=== PATIENT | female | born 1970 | race Caucasian/White ===

== ENCOUNTER 2020-01-12 08:31 | Day surgery (SDC) | payer BC, SELFPAY ==
[2020-01-12 09:00] LABS: Pregnancy On Board Control Negative; Urine Pregnancy Test Negative
[2020-01-12 09:12] LABS: Glucose Point of Care 86 (65-105)
== END 2020-01-12 10:30 | disposition home or self-care (01) ==
LOC: CHSSURGERY 08:33
PROVIDERS: PCP Internal Medicine; Visit Provider Surgery
DX: Z12.11 Encounter for screening for malignant neoplasm of colon (principal); K57.30 Diverticulosis of large intestine without perforation or abscess without bleeding; K64.8 Other hemorrhoids
CPT/HCPCS: 45378; 00812; 81025; J2704; J7120

== ENCOUNTER 2021-04-08 10:23 | Outpatient (CLI) | payer BC, SELFPAY ==
--- NOTE | 2021-04-17 21:50 | WPDHOLTEREM ---
Holter/Event Monitor Holter/Event Monitor Date of procedure: 04/08/21 Procedure Type: event monitor Indications: Palpitations Conclusion: 1. 7 days event monitor between 04/08/21-04/17/21. There are 7 transmissions for analysis. 2. Underlying rhythm is sinus rhythm. HR range 50-120 bpm; average HR 73 bpm. 3. There are occasional premature supraventricular complexes with a burden of 2%. No supraventricular tachycardia. 4. There are intermittent premature ventricular complexes with total burden of 11% and a ventricular couplet. No ventricular tachycardia. 5. No significant pauses greater than 2 seconds. 6. No symptoms available for correlation.
== END 2021-04-08 10:24 | disposition home or self-care (01) ==
LOC: CHSCARD 10:24
PROVIDERS: PCP Internal Medicine; Visit Provider Internal Medicine
DX: R00.2 Palpitations (principal)
CPT/HCPCS: 93270

== ENCOUNTER 2021-04-10 10:12 | Outpatient (CLI) | payer BC, SELFPAY ==
--- NOTE | ~2021-04-10 | MR_ITS ---
EXAMINATION: MR shoulder LT wo con DATE: 04/10/2021 12:02 INDICATION: Chronic left shoulder pain TECHNIQUE: Magnetic resonance imaging (MRI) of the left shoulder was performed without intravenous co ntrast. Sequences included axial PD-weighted FS FSE, coronal oblique PD-weighted FS FSE, coronal obli que T2-weighted FS FSE, sagittal PD-weighted FS FSE, and sagittal T1-weighted SE. COMPARISON: None. FINDINGS: Coracoacromial arch: The acromion undersurface is curved in morphology (type II) with lateral downsloping and tiny lateral subacromial spurs. The coracoacromial ligament is normal. Mild acromioclavicular osteoarthritis with additional tiny inferior directed osteophytes. Rotator cuff: Mild tendinopathy at the distal conjoined portion of the supraspinatus and infraspinatus tendons with out discrete tear. The teres minor and subscapularis tendons are normal. Normal rotator cuff muscle b ulk and signal. Biceps tendon, glenoid labrum and glenohumeral cartilage: Long head of the biceps tendon is normal. Glenoid labrum is normal with normal anterosuperior subling ual foramen. Glenohumeral cartilage is normal. Fluid: Physiologic amount of fluid in the glenohumeral joint and biceps tendon sheath. No loose osteochondra l bodies. Mild increased fluid signal in the subacromial/subdeltoid bursa consistent with mild bursit is. Bones: No fracture or pathologic marrow replacing process. Mild subarticular cystic change at the superior f acet and at the junction of the superior and middle facets of the greater tuberosity. IMPRESSION: 1. Mild tendinopathy without discrete tear at the distal conjoined portion of the supraspinatus and i nfraspinatus tendons. 2. Mild subacromial/subdeltoid bursitis. 3. Mild acromioclavicular osteoarthritis. 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 IMPRESSION: 1. Mild tendinopathy without discrete tear at the distal conjoined portion of t he supraspinatus and infraspinatus tendons. 2. Mild subacromial/subdeltoid bursitis. 3. Mild acromioclavicular osteoarthritis.
== END 2021-04-10 10:13 | disposition home or self-care (01) ==
LOC: CHSIMG 10:13
PROVIDERS: PCP Internal Medicine; Visit Provider Internal Medicine
DX: M25.512 Pain in left shoulder (principal)
CPT/HCPCS: 73221

== ENCOUNTER 2021-08-06 08:55 | Outpatient (CLI) | payer BC, SELFPAY ==
[2021-08-06 10:21] LABS: SARS-CoV-2 RNA PCR Negative (Negative)
== END 2021-08-06 08:56 | disposition home or self-care (01) ==
PROVIDERS: PCP Internal Medicine; Visit Provider Surgery
DX: Z01.818 Encounter for other preprocedural examination (principal); Z20.822 Contact with and (suspected) exposure to COVID-19
CPT/HCPCS: C9803; U0003; U0005

== ENCOUNTER 2021-08-08 01:03 | Day surgery (SDC) | payer BC, SELFPAY ==
[2021-07-25 15:12] VITALS: BMI 23.8
[2021-08-08 08:25] VITALS: BP 145/75; PULSE 93; RESP 16; TEMP 35.9; O2SAT 98; BMI 23.8
[2021-08-08] MEDS: LACTATED RINGERS 1,000 ML 150 ML IV CONT (08:27)
--- NOTE | 2021-08-08 09:17 | PM.IMHP ---
H&P: HPI History of Present Illness Date/Time: 08/08/21 09:17 Chief Complaint: iron deficiency anemia Narrative: this is a 51-year-old woman who presents for EGD and colonoscopy. She has recently been found to have iron deficiency anemia. She does not notice any blood in her stool or any black tarry stools. She has recently been started on iron supplement. She had a colonoscopy 1.5 years ago and this was normal. She denies any acid reflux or ulcer symptoms. Review of Systems Review of Systems: All systems reviewed & are unremarkable except as noted in HPI and below Constitutional: Constitutional: Denies chills, Denies fever(s), Denies headache(s) and Denies weight loss Eyes: Eyes: Denies change in vision ENT: Denies dizziness, Denies headache(s), Denies neck mass and Denies throat swelling Cardiovascular: Cardiovascular: Denies chest pain, Denies lightheadedness and Denies dyspnea Respiratory: Respiratory: Denies cough, Denies dyspnea and Denies wheezing Gastrointestinal: Gastrointestinal: Denies abdominal pain, Denies change in bowel habits, Denies nausea and Denies vomiting Genitourinary: Genitourinary: Denies hematuria and Denies dysuria Musculoskeletal: Musculoskeletal: Reports as per HPI Integumentary/Breasts: Skin/Breast: Reports as per HPI Neurologic: Denies dizziness and Denies headache(s) Allergic/Immunologic: Allergic/Immunologic: Denies throat swelling and Denies wheezing [facility] Past Medical History Medical History (Updated 08/08/21 @ 09:19 by Juvencio Spence DO) Anemia Arthritis H/O bronchitis Family History Family History (System 12/14/19 @ 13:02 by Virgen Hernández) Mother Asthma Social History Social History (System 12/14/19 @ 13:02 by Virgen Hernández) Smoking status: Former smoker Alcohol intake: current Drinks per week: 0 Alcohol use details: occasional Substance use: never Substance use type: does not use Living arrangements: with family Spiritual care concerns: No Meds Home Medications and Allergies Home Medications Medication Instructions Recorded Confirmed Type atenolol 25 mg PO DAILY 07/25/21 07/25/21 History Allergies Allergy/AdvReac Type Severity Reaction Status Date / Time No Known Allergies Allergy Verified 08/08/21 08:24 Vital Signs Vital Signs - 24 hr 08/08/21 08:25 Temperature 35.9 C L Pulse Rate 93 Respiratory Rate 16 Blood Pressure 145/75 H Pulse Oximetry 98 Exam Const: General: no acute distress and alert Orientation/consciousness: patient oriented x3 HENMT: Head: normocephalic and atraumatic Ears: hearing grossly normal bilaterally General nose exam: Normal nares present Mouth: Yes Normal oral and palatal mucosa present Eyes: Periorbital: periorbital findings normal Sclera: sclerae normal EOM: EOMs intact bilaterally Neck: Neck: normal visual inspection, no lymphadenopathy and trachea midline Chest: Chest palpation & inspection: normal inspection of the chest Resp: Effort & Inspection: normal respiratory effort Auscultation: clear to auscultation bilaterally Cardio: Jugular venous distension: no JVD Rate: regular rate Rhythm: regular rhythm Heart sounds: S1 normal heart sound present and S2 normal heart sound present Peripheral pulses: Peripheral pulses 2+ throughout GI: Inspection: normal to inspection GI Palp: Yes Soft to palpation, No Tenderness to palpation present (GI), No Guarding due to palpation present (GI) and No Rebound tenderness present Percussion: Yes normal to percussion Auscultation: normal bowel sounds : General: Yes no CVA tenderness Back/Spine/Pelvis: Back: no CVA tenderness Neuro: General: patient oriented x3, no focal motor deficits and CN's II-XI intact bilaterally Cognition (Neuro): normal cognition Speech: normal speech Motor exam (neuro): 5/5 motor strength present throughout Extrem: General: capillary refill normal and no clubbing, cyanosis or
--- NOTE | 2021-08-08 09:18 | WPDANESEPPF ---
Anes - Initial Pre Proc Eval Procedure: Operation Date: 08/08/21 09:00 Proposed Procedures p Esophagogastroduodenoscopy & Screening Colonoscopy - Juvencio Spence DO Date/Time: 08/08/21 09:18 Surgeon: Juvencio Spence DO Pre Op Diagnosis: MARY Patient Data Age: 51 Gender: F Height: 1.75 m Weight: 73 kg Last Vital Signs Temp 96.7 F L 08/08/21 08:25 Pulse 93 08/08/21 08:25 Resp 16 08/08/21 08:25 BP 145/75 H 08/08/21 08:25 Pulse Ox 98 08/08/21 08:25 Allergies Allergy/AdvReac Type Severity Reaction Status Date / Time No Known Allergies Allergy Verified 08/08/21 08:24 Home Medications Medication Instructions Recorded Confirmed Type atenolol 25 mg PO DAILY 07/25/21 07/25/21 History Patient hx anesthesia problems: none Family hx anesthesia problems: none Results Review: All pre-operative results and documents have been reviewed as part of the pre-operative evaluation. [facility] Past Medical History Medical History (Updated 08/08/21 @ 09:19 by Juvencio Spence DO) Anemia Arthritis H/O bronchitis Family History Family History (System 12/14/19 @ 13:02 by Virgen Hernández) Mother Asthma Social History Social History (System 12/14/19 @ 13:02 by Virgen Hernández) Smoking status: Former smoker Alcohol intake: current Drinks per week: 0 Alcohol use details: occasional Substance use: never Substance use type: does not use Living arrangements: with family Spiritual care concerns: No Anes - Eval Final PreProcedure Day of Procedure 08/08/21 09:18 Patient weight: normal Heart: regular rate and rhythm Lungs: clear to auscultation Airway: Mallampati scale class II Neurological: alert and oriented Last oral intake: >/= 8 hours ASA classification: II Emergent: no Anesthetic plan: proceed Anesthesia type and monitoring: general GIVS and standard monitoring Results Review: All pre-operative results and documents have been reviewed as part of the pre-operative evaluation. Informed Consent: The patient's anesthetic plan and its attendant risks and benefits were discussed with the patient/family/POA. Questions were solicited and answers provided to the satisfaction of the patient/family/POA.
--- NOTE | 2021-08-08 10:11 | SUR.OPER ---
[facility] [phone] [place] [phone]
[2021-08-08 10:15] VITALS: BP 99/49; PULSE 60; RESP 12; O2SAT 100
[2021-08-08 10:25] VITALS: BP 92/60; PULSE 65; RESP 20; O2SAT 100
[2021-08-08 10:35] VITALS: BP 107/65; PULSE 67; RESP 16; O2SAT 100
== END 2021-08-08 10:55 | disposition home or self-care (01) ==
PROVIDERS: PCP Internal Medicine; Visit Provider Surgery
PROC: 0DJ08ZZ Inspection of Upper Intestinal Tract, Via Natural or Artificial Opening Endoscopic (ICD-10-PCS; CPT 43235; principal; 2021-08-08 09:00)
DX: D50.9 Iron deficiency anemia, unspecified (principal); K29.00 Acute gastritis without bleeding; D17.5 Benign lipomatous neoplasm of intra-abdominal organs; K64.8 Other hemorrhoids; M19.90 Unspecified osteoarthritis, unspecified site; Z87.891 Personal history of nicotine dependence
CPT/HCPCS: 43251; 43239; 45378; 87081; 88305; J2001; J2704; J7120

== ENCOUNTER 2021-08-12 10:23 | Outpatient (CLI) | payer BC, SELFPAY ==
[2021-08-12 10:35] LABS: Add Urine Microscopic? NO; Appearance Urine Clear (Clear); Basophils Absolute Auto 0.06 K/mm3 (0.00-0.10); Basophils Percent Auto 0.9 % (0.0-1.0); Bilirubin Urine Negative (Negative); Blood Urine Negative (Negative); Color Urine Light Yellow (Yellow); Eosinophils Absolute Auto 0.15 K/mm3 (0.02-0.50); Eosinophils Percent Auto 2.2 % (1.0-6.0); Glucose Urine UA Negative (Negative); Hematocrit 39.7 % (35.0-49.0); Hemoglobin 12.9 g/dL (12.0-15.0); Immature Granulocyte Absolute 0.02 K/mm3 (0.00-0.00); Immature Granulocyte Percent A 0.3 % (0.0-0.0); Ketones Urine Negative (Negative); Leukocyte Esterase Ur Negative LEU/UL (Negative); Lymphocytes Absolute Auto 1.08 K/mm3 (1.10-4.50); Mean Corpuscular HGB Conc 32.5 g/dL (32.0-36.0); Mean Corpuscular Hemoglobin 30.1 pg (27.0-31.0); Mean Corpuscular Volume 92.5 fL (78.0-102.0); Mean Platelet Volume 12.3 fl (9.2-11.8); Monocytes Percent Auto 11.8 % (2.0-11.0); Neutrophils Absolute Auto 4.7 K/mm3 (1.7-7.2); Neutrophils Percent Auto 68.8 % (50.0-70.0); Nitrate Urine Negative (Negative); Platelet Count Result 173 K/mm3 (150-420); Protein Urine Negative (Negative); Red Blood Count 4.29 M/mm3 (4.20-5.40); Red Cell Distribution Width 15.9 % (11.6-14.4); Specific Grav Ur <= 1.005 (1.010-1.020); Urobilinogen Urine 0.2 mg/dL (0.2-1.0); White Blood Count 6.8 K/mm3 (4.8-10.8)
[2021-08-12 11:53] LABS: Alanine Aminotransferase 24 U/L (14-59); Albumin Level 4.1 g/dL (3.4-5.0); Alkaline Phosphatase 58 U/L (46-116); Anion Gap 8 mmol/L (8-16); Aspartate Amino Transferase 13 U/L (15-37); Bilirubin,Total 0.4 mg/dL (0.00-1.00); Blood Urea Nitrogen 19 mg/dL (7-18); Calcium 8.9 mg/dL (8.5-10.1); Carbon Dioxide 29 mmol/L (21-32); Chloride 105 mmol/L (98-108); Estimated Glomerular Filt Rate 55; Ferritin 66 ng/mL (8-252); Glucose 83 mg/dL (70-99); Iron 85 ug/dL (50-170); Osmolality Calculated 295 mOsm/kg (285-295); Percent Iron Saturation 30 % (12-57); Potassium 4.8 mmol/L (3.5-5.1); Sodium 142 mmol/L (136-145); Total Protein 6.5 g/dL (6.4-8.2); Vitamin B12 572 pg/mL (193-986)
== END 2021-08-12 10:24 | disposition home or self-care (01) ==
LOC: CHSLAB 10:25
PROVIDERS: PCP Internal Medicine; Visit Provider Internal Medicine
DX: R10.11 Right upper quadrant pain (principal); E53.8 Deficiency of other specified B group vitamins; D64.9 Anemia, unspecified
CPT/HCPCS: 36415; 80053; 81003; 82607; 82728; 83540; 83550; 85025

== ENCOUNTER 2021-08-14 10:45 | Outpatient (CLI) | payer BC, SELFPAY ==
--- NOTE | ~2021-08-14 | CT_ITS ---
EXAMINATION: CT abdomen pelvis w con DATE: 08/14/2021 11:16 INDICATION: Generalized upper abdominal pain radiating to back. Constipation. TECHNIQUE: Computed tomography (CT) of the abdomen and pelvis was performed with 100 cc Omnipaque 350 intravenous contrast. Automated exposure control and iterative reconstruction technique were employe d. Exam dose: 404.25 mGy-cm total exam DLP. COMPARISON: None. FINDINGS: The lung bases are clear. Normal heart size. No pericardial or pleural effusion. There are scattered hepatic cysts of left and right hepatic lobes, measuring up to 2.2 cm approximate maximal dimension. No suspicious hepatic lesion is evident. The gallbladder is unremarkable. No bile duct or pancreatic duct dilatation. No pancreatic mass lesio n or calcification is detected. Scattered calcified splenic granulomas. No splenomegaly. Normal morphology of the adrenal glands. 5 mm probable cyst upper pole of right kidney. No renal mass lesion or urinary tract calculus or hydr oureteronephrosis of either kidney is noted otherwise. Approximately 5.3 cm uterine fundic fibroid. Bilateral tubal insert devices. Mild diffuse thickening of the urinary bladder wall. Normal caliber of the abdominal aorta. No intraperitoneal or retroperitoneal or pelvic mass lesion or adenopathy or ascites. Normal appendix. There are occasional colonic diverticula; no CT evidence of diverticulitis. No bowel obstruction, pne umatosis or intraperitoneal free air. No suspicious osteolytic or osteoblastic lesions. IMPRESSION: Multiple hepatic cysts Normal appendix Mild colonic diverticulosis; no CT evidence of diverticulitis 5.3 cm uterine fibroid Reviewed, dictated and finalized at Location [facility]. Reviewed, dictated and finalized at location B.
== END 2021-08-14 10:46 | disposition home or self-care (01) ==
LOC: CHSIMG 10:45
PROVIDERS: PCP Internal Medicine; Visit Provider Internal Medicine
DX: R10.9 Unspecified abdominal pain (principal)
CPT/HCPCS: 74177; Q9967

== ENCOUNTER 2021-08-22 13:29 | Outpatient (CLI) | payer BC, SELFPAY ==
[2021-08-22 14:19] LABS: Anion Gap 8 mmol/L (8-16); Blood Urea Nitrogen 15 mg/dL (7-18); Carbon Dioxide 29 mmol/L (21-32); Chloride 104 mmol/L (98-108); Estimated Glomerular Filt Rate 54; Glucose 97 mg/dL (70-99); Osmolality Calculated 292 mOsm/kg (285-295); Potassium 4.4 mmol/L (3.5-5.1); Sodium 141 mmol/L (136-145)
== END 2021-08-22 13:30 | disposition home or self-care (01) ==
LOC: CHSLAB 13:30
PROVIDERS: PCP Internal Medicine; Visit Provider Internal Medicine
DX: R79.89 Other specified abnormal findings of blood chemistry (principal)
CPT/HCPCS: 36415; 80048

== ENCOUNTER 2021-10-02 11:58 | Outpatient (CLI) | payer BC, SELFPAY ==
[2021-10-02 14:14] LABS: Influenza A QL RT-PCR Negative (Negative); Influenza B QL RT-PCR Negative (Negative); SARS-CoV-2 RNA PCR Negative (Negative)
== END 2021-10-02 11:59 | disposition home or self-care (01) ==
LOC: CHSLAB 12:01
PROVIDERS: PCP Internal Medicine; Visit Provider Internal Medicine
DX: J06.9 Acute upper respiratory infection, unspecified (principal)
CPT/HCPCS: 87081; 87502; 87880; C9803; U0003; U0005

== ENCOUNTER 2021-12-06 16:24 | Outpatient (CLI) | payer BC, SELFPAY ==
[2021-12-06 17:20] LABS: SARS-CoV-2 Ag Negative (Negative)
[2021-12-06 17:31] LABS: Influenza Control Valid (Valid)
[2021-12-07 20:23] LABS: SARS-CoV-2 RNA PCR Negative
== END 2021-12-06 16:25 | disposition home or self-care (01) ==
LOC: CHSLAB 16:27
PROVIDERS: PCP Internal Medicine; Visit Provider Internal Medicine
DX: J06.9 Acute upper respiratory infection, unspecified (principal); Z20.822 Contact with and (suspected) exposure to COVID-19
CPT/HCPCS: 87081; 87426; 87804; 87880; C9803; U0003; U0005

== ENCOUNTER 2022-04-02 18:28 | Outpatient (CLI) | payer BC, SELFPAY ==
--- NOTE | ~2022-04-02 | XR_ITS ---
EXAMINATION: XR chest 2V Exam Date/Time: 04/02/2022 18:40 CDT HISTORY: Post COVID X 2 wks ago , cough Comparison: 06/18/2018.. RESULT: Lines, tubes, and devices: None. Lungs and pleura: Clear. Cardiomediastinal silhouette: Stable cardiomediastinal silhouette. Other: No acute osseous or upper abdominal finding. IMPRESSION: No acute cardiopulmonary process. Reviewed, dictated and finalized at location K.
== END 2022-04-02 18:29 | disposition home or self-care (01) ==
LOC: CHSIMG 18:32
PROVIDERS: PCP Internal Medicine; Visit Provider Internal Medicine
DX: R05.9 Cough, unspecified (principal); U09.9 Post COVID-19 condition, unspecified
CPT/HCPCS: 71046

== ENCOUNTER 2024-01-01 11:23 | Outpatient (CLI) | payer BC, SELFPAY ==
--- NOTE | ~2024-01-01 | XR_ITS ---
XR chest 2V DATE: 01/01/2024 11:49 INDICATION: Cough, wheezing TECHNIQUE: PA and lateral views COMPARISON: 04/02/2022 PA and lateral chest FINDINGS: Moderate bilateral hyperinflation. No pulmonary infiltrate or consolidation, pleural effusi on or pulmonary vascular congestion or pneumothorax is detected. Heart size is normal. No hilar or me diastinal enlargement. Mild levoscoliosis of the upper thoracic spine. Osteopenia. IMPRESSION: Moderate bilateral hyperinflation. No active cardiopulmonary disease Reviewed, dictated and finalized at location B. 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 No active cardiopulmonary diseas e
[2024-01-01 11:42] LABS: Hematocrit 39.4 % (35.0-49.0); Hemoglobin 12.9 g/dL (12.0-15.0); Immature Platelet Fraction Pct 3.6 % (1.0-7.0); Mean Corpuscular HGB Conc 32.7 g/dL (32.0-36.0); Mean Corpuscular Hemoglobin 30.2 pg (27.0-31.0); Mean Corpuscular Volume 92.3 fL (78.0-102.0); Mean Platelet Volume 10.5 fl (9.2-11.8); Platelet Count Result 142 K/mm3 (150-420); Red Blood Count 4.27 M/mm3 (4.20-5.40); Red Cell Distribution Width 13.9 % (11.6-14.4); White Blood Count 4.2 K/mm3 (4.8-10.8)
[2024-01-01 11:57] LABS: Alanine Aminotransferase 19 U/L (14-59); Albumin Level 3.5 g/dL (3.4-5.0); Alkaline Phosphatase 63 U/L (46-116); Anion Gap 9 mmol/L (8-16); Aspartate Amino Transferase 19 U/L (15-37); Bilirubin,Total 0.3 mg/dL (0.00-1.00); Blood Urea Nitrogen 11 mg/dL (7-18); Calcium 7.9 mg/dL (8.5-10.1); Carbon Dioxide 28 mmol/L (21-32); Chloride 100 mmol/L (98-108); Estimated Glomerular Filt Rate 45; Glucose 101 mg/dL (70-99); Osmolality Calculated 283 mOsm/kg (285-295); Potassium 3.8 mmol/L (3.5-5.1); Sodium 137 mmol/L (136-145); Total Protein 6.4 g/dL (6.4-8.2)
[2024-01-01 12:42] LABS: Band Neutrophils Percent 3 % (0-6); Basophils Percent Manual 0 % (0-1); Eosinophils Percent Manual 0 % (1-6); Lymphocytes Absolute Manual 0.88 K/mm3 (1.1-4.5); Lymphocytes Percent Manual 21 % (18-44); Monocytes Absolute Manual 0.58 K/mm3 (0.1-0.90); Monocytes Percent Manual 14 % (3-9); Neutrophils Absolute Manual 2.73 K/mm3 (1.7-7.2); Neutrophils Percent Manual 62 % (46-73); Platelet Estimate Adequate (Adequate); Total Cells Counted 100
== END 2024-01-01 11:24 | disposition home or self-care (01) ==
LOC: CHSLAB 11:27
PROVIDERS: PCP Internal Medicine; Visit Provider Internal Medicine
DX: R05.9 Cough, unspecified (principal); R91.8 Other nonspecific abnormal finding of lung field
CPT/HCPCS: 36415; 71046; 80053; 85025; 85055

== ENCOUNTER 2024-01-14 14:06 | Outpatient (CLI) | payer BC, SELFPAY ==
--- NOTE | ~2024-01-14 | XR_ITS ---
EXAMINATION: XR chest 2V DATE: 01/14/2024 14:29 INDICATION: Cough. Congestion. TECHNIQUE: Frontal and lateral views of the chest were obtained. COMPARISON: Chest 2 views 01/01/2024, CT abdomen and pelvis 08/14/2021 FINDINGS: A calcified right lung nodule is consistent with old granulomatous disease. No pleural effu tye or pneumothorax. The heart size is normal. IMPRESSION: 1. No acute cardiopulmonary disease. 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 [employer] P[employer] TOUR GUIDE
[2024-01-14 14:20] LABS: Basophils Absolute Auto 0.03 K/mm3 (0.00-0.10); Basophils Percent Auto 0.6 % (0.0-1.0); Eosinophils Absolute Auto 0.13 K/mm3 (0.02-0.50); Eosinophils Percent Auto 2.4 % (1.0-6.0); Hemoglobin 12.3 g/dL (12.0-15.0); Immature Granulocyte Absolute 0.01 K/mm3 (0.00-0.00); Immature Granulocyte Percent A 0.2 % (0.0-0.0); Lymphocytes Absolute Auto 1.58 K/mm3 (1.10-4.50); Lymphocytes Percent Auto 29.1 % (18.0-42.0); Mean Corpuscular HGB Conc 32.4 g/dL (32.0-36.0); Mean Corpuscular Hemoglobin 29.9 pg (27.0-31.0); Mean Corpuscular Volume 92.2 fL (78.0-102.0); Mean Platelet Volume 9.9 fl (9.2-11.8); Monocytes Absolute Auto 0.82 K/mm3 (0.10-0.90); Monocytes Percent Auto 15.1 % (2.0-11.0); Neutrophils Absolute Auto 2.9 K/mm3 (1.7-7.2); Neutrophils Percent Auto 52.6 % (50.0-70.0); Platelet Count Result 232 K/mm3 (150-420); Red Blood Count 4.12 M/mm3 (4.20-5.40); Red Cell Distribution Width 13.4 % (11.6-14.4); White Blood Count 5.4 K/mm3 (4.8-10.8)
== END 2024-01-14 14:07 | disposition home or self-care (01) ==
LOC: CHSLAB 14:08
PROVIDERS: PCP Internal Medicine; Visit Provider Internal Medicine
DX: R05.9 Cough, unspecified (principal)
CPT/HCPCS: 36415; 71046; 85025

== ENCOUNTER 2024-01-20 13:31 | Outpatient (CLI) | payer OTHER, SELFPAY ==
--- NOTE | 2024-01-20 14:30 | NEURO_ITS ---
Impression: # Complains of bilateral upper extremity discomfort and hand pain. # Early evolving Carpal Tunnel Syndrome. # No ulnar neuropathy. # Normal needle/EMG exam. Nerve Conduction Studies Anti Sensory Summary Table Stim Site NR Peak (ms) P-T Amp (?V) Site1 Site2 Delta-P (ms) Dist (cm) Edgardo (m/s) Left Median Anti Sensory (2-3nd Digit) Wrist 3.3 56.4 Wrist 2-3nd Digit 3.3 14.0 42 Wrist 3.3 74.3 Wrist 2-3nd Digit 3.3 14.0 42 Right Median Anti Sensory (2-3nd Digit) Wrist 3.2 42.7 Wrist 2-3nd Digit 3.2 14.0 44 Wrist 3.2 59.8 Wrist 2-3nd Digit 3.2 14.0 44 Left Radial Anti Sensory (Base 1st Digit) Wrist 1.9 43.2 Wrist Base 1st Digit 1.9 0.0 Right Radial Anti Sensory (Base 1st Digit) Wrist 2.4 22.3 Wrist Base 1st Digit 2.4 0.0 Left Ulnar Anti Sensory (5th Digit) Wrist 2.5 85.9 Wrist 5th Digit 2.5 14.0 56 Right Ulnar Anti Sensory (5th Digit) Wrist 2.4 43.3 Wrist 5th Digit 2.4 14.0 58 Motor Summary Table Stim Site NR Onset (ms) O-P Amp (mV) Site1 Site2 Delta-0 (ms) Dist (cm) Edgardo (m/s) Left Median Motor (Abd Poll Brev) Wrist 3.0 6.0 Elbow Wrist 4.8 29.0 60 Elbow 7.8 6.5 Right Median Motor (Abd Poll Brev) Wrist 3.8 3.0 Elbow Wrist 4.3 26.0 60 Elbow 8.1 7.6 Left Ulnar Motor (Abd Dig Minimi) Wrist 2.3 6.5 A Elbow Wrist 5.1 30.0 59 A Elbow 7.4 6.0 Right Ulnar Motor (Abd Dig Minimi) Wrist 2.4 7.3 A Elbow Wrist 4.9 29.0 59 A Elbow 7.3 5.4 F Wave Studies NR F-Lat (ms) L-R F-Lat (ms) Left Median (Mrkrs) (Abd Poll Brev) 28.40 0.35 Right Median (Mrkrs) (Abd Poll Brev) 28.05 0.35 Left Ulnar (Mrkrs) (Abd Dig Min) 26.92 0.02 Right Ulnar (Mrkrs) (Abd Dig Min) 26.91 0.02 EMG Side Muscle Nerve Root Ins Act Fibs Amp Dur Recrt Comment Right 1stDorInt Ulnar C8-T1 Nml Nml Nml Nml Nml Right Ext Indicis Radial (Post Int) C7-8 Nml Nml Nml Nml Nml Right Ext Digitorum Radial (Post Int) C7-8 Nml Nml Nml Nml Nml Right BrachioRad Radial C5-6 Nml Nml Nml Nml Nml Right PronatorTeres Median C6-7 Nml Nml Nml Nml Nml Right Abd Poll Brev Median C8-T1 Nml Nml Nml Nml Nml Right ABD Dig Min Ulnar C8-T1 Nml Nml Nml Nml Nml Left 1stDorInt Ulnar C8-T1 Nml Nml Nml Nml Nml Left Ext Indicis Radial (Post Int) C7-8 Nml Nml Nml Nml Nml Left Ext Digitorum Radial (Post Int) C7-8 Nml Nml Nml Nml Nml Left BrachioRad Radial C5-6 Nml Nml Nml Nml Nml Left PronatorTeres Median C6-7 Nml Nml Nml Nml Nml Left Abd Poll Brev Median C8-T1 Nml Nml Nml Nml Nml Left ABD Dig Min Ulnar C8-T1 Nml Nml Nml Nml Nml Right FlexCarpiUln Ulnar C8,T1 Nml Nml Nml Nml Nml Right Abd Poll Long Radial (Post Int) C7-8 Nml Nml Nml Nml Nml Left Abd Poll Long Radial (Post Int) C7-8 Nml Nml Nml Nml Nml Left FlexCarpiUln Ulnar C8,T1 Nml Nml Nml Nml Nml MTDD
== END 2024-01-20 13:32 | disposition home or self-care (01) ==
PROVIDERS: PCP Internal Medicine; Visit Provider Internal Medicine
DX: G56.03 Carpal tunnel syndrome, bilateral upper limbs (principal)
CPT/HCPCS: 95886; 95911

== ENCOUNTER 2024-11-17 13:54 | Outpatient (CLI) | payer BC, SELFPAY ==
--- NOTE | ~2024-11-17 | XR_ITS ---
CHEST RADIOGRAPH, PA AND LATERAL CLINICAL HISTORY: cough/wheezing/crepts/pneumonia . COMPARISON: 01/14/2024 TECHNIQUE: PA and lateral views of the chest. FINDINGS The cardiomediastinal silhouette is unremarkable. The lungs are clear. Visualized osseous structures and soft tissues are unremarkable. IMPRESSION: No focal infiltrate or effusion. 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
[2024-11-17 14:13] LABS: Basophils Absolute Auto 0.05 K/mm3 (0.00-0.10); Basophils Percent Auto 0.5 % (0.0-1.0); Eosinophils Percent Auto 1.9 % (1.0-6.0); Hematocrit 40.3 % (35.0-49.0); Immature Granulocyte Absolute 0.06 K/mm3 (0.00-0.00); Immature Granulocyte Percent A 0.6 % (0.0-0.0); Lymphocytes Percent Auto 22.3 % (18.0-42.0); Mean Corpuscular HGB Conc 32.3 g/dL (32-36); Mean Corpuscular Hemoglobin 29.4 pg (27.0-31.0); Mean Corpuscular Volume 91.2 fL (78.0-102.0); Mean Platelet Volume 9.9 fl (9.2-11.8); Monocytes Percent Auto 7.8 % (2.0-11.0); Neutrophils Absolute Auto 6.89 K/mm3 (1.70-7.20); Neutrophils Percent Auto 66.9 % (50.0-70.0); Platelet Count Result 246 K/mm3 (150-420); Red Blood Count 4.42 M/mm3 (4.20-5.40); Red Cell Distribution Width 13.6 % (11.6-14.4); White Blood Count 10.3 K/mm3 (4.8-10.8)
== END 2024-11-17 13:55 | disposition home or self-care (01) ==
LOC: CHSLAB 13:57
PROVIDERS: PCP Internal Medicine; Visit Provider Internal Medicine
DX: R05.9 Cough, unspecified (principal); R06.2 Wheezing
CPT/HCPCS: 36415; 71046; 85025

== ENCOUNTER 2024-11-22 12:55 | Outpatient (RCR) | payer OTHER, SELFPAY ==
--- NOTE | 2024-11-23 16:21 | BUOTOPEVAL ---
Assessment and note entered by Erika Flores OT Evaluation Information Assessment Status Evaluation Diagnosis Pain of bilateral hands ICD-10 Condition Codes (OT) Pain in right hand M79.641,Pain in left hand M79. 642 Onset 09/2022 Subjective Information Main concerns are numbness in B hands, swelling of forearm, aches/pain in hands and forearms. Reported Pain Level Pain Score 4,3: Self Report Assessment OT Clinical Summary The patient is a 54 year old female who was referred to outpatient OT due to B hand pain, B carpal tunnel release. The patient previously was having pain, following surgery, the pain has improved but she continued to have discomfort and numbness/tingling in B hands. 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 The patient hopes to return to work soon and want to address pain and mobility of B hands and wrists. The patient requires skilled OT to address scar management, pain, AROM, vice president supply chain/pinch strength and HEP education. Plan of Care Interventions Therapeutic Exercise,Manual Therapy,Neuro Re- education,Therapeutic Activities,Hot Pack/Cold Pack,Self-Care/Home Management,Prosthetic Training ,Ultrasound OT Services Indicated Yes Treatment Frequency and 2x/week for 12 visits. Duration These treatments will address the objective and functional deficits as defined above. The patient will be advanced safely and appropriately in order for the patient to progress towards his/her prior level of function. Additional exercises will be introduced and as well as a comprehensive home exercise program upon discharge, if needed, ?to ensure carryover of functional gains achieved in the clinic. This treatment plan has been reviewed and agreement upon by the patient.
--- NOTE | 2024-11-23 16:21 | OPREHPOC ---
Outpatient Therapy Plan of Care This is a Multidisciplinary Plan of Care that may contain components documented by all disciplines (PT, OT, and ST.) OT Problem 1 OT Problem #1 Knowledge Deficit OT Goal 1 Goal / Goal Update The patient will demonstrate 100% knowledge and return demonstration for UE HEP in order to improve hand strength and decrease pain for return to work. Target Visit 12 OT Problem 2 OT Problem #2 Pain OT Goal 1 Goal / Goal Update The patient will demonstrate decreased pain in B hands and forearms reported as <1/10 pain at its worst in order to perform ADLs without discomfort. Target Visit 12 OT Goal 2 Goal / Goal Update The patient will demonstrate WNL AROM of B wrist flexion and extension in order to perform grooming tasks without difficulty to maintain independence . SOC L wrist flexion: 28 degrees L wrist extension: 60 degrees R wrist flexion: 41 degrees R wrist extension: 65 degrees Target Visit 12 OT Problem 3 OT Problem #3 Impaired Strength OT Goal 1 Goal / Goal Update The patient will demonstrate increased rn new grad and pinch strength by increasing B rn new grad by >10 lbs and lateral pinch by >8 lbs in order to open jars for meal prep. Target Visit 12 OT Goal 2 Goal / Goal Update The patient will demonstrate minimal to no scar buildup at B hands at incision site to avoid further limited ROM and pain. Target Visit 12
--- NOTE | 2024-12-16 12:33 | OTOPPROG ---
Assessment and note entered by Erika Flores OT Evaluation Information Assessment Status Progress Assessment OT Clinical Summary The patient demonstrates significant improvement in wrist AROM, calculation clerk/pinch strength, and scar management since SOC resulting in increased strength for daily tasks and decreased limitations with wrist mobility. The patient demonstrates minimal progress in overall pain with sharp/ shooting pain in L hand. The patient demonstrates continued need for skilled OT to address L scar buildup, B wrist AROM, B hand strength and pain management needed to return to WNL function of B hands for daily tasks and work. The patient demonstrates good progress toward goals with reasonable expectation for improvement. The patient requires 4 more visits to finish 12 visits on order with date extended to continue to address deficits. The patient is aware and is to continue HEP and skilled OT. Plan of Care Interventions Therapeutic Exercise,Manual Therapy,Neuro Re- education,Therapeutic Activities,Hot Pack/Cold Pack,Electrical Stimulation,Sensory Integrative Techniques,Self-Care/Home Management,Prosthetic Training OT Services Indicated Yes Treatment Frequency and 2x/week for 4 visits. Duration These treatments will address the objective and functional deficits as defined above. The patient will be advanced safely and appropriately in order for the patient to progress towards his/her prior level of function. Additional exercises will be introduced and as well as a comprehensive home exercise program upon discharge, if needed, ?to ensure carryover of functional gains achieved in the clinic. This treatment plan has been reviewed and agreement upon by the patient.
--- NOTE | 2024-12-16 12:33 | OPREHPOC ---
Outpatient Therapy Plan of Care This is a Multidisciplinary Plan of Care that may contain components documented by all disciplines (PT, OT, and ST.) OT Problem 1 OT Problem #1 Knowledge Deficit OT Goal 1 Goal / Goal Update The patient will demonstrate 100% knowledge and return demonstration for UE HEP in order to improve hand strength and decrease pain for return to work. Target Visit 12 Progress Partially Met OT Problem 2 OT Problem #2 Pain OT Goal 1 Goal / Goal Update The patient will demonstrate decreased pain in B hands and forearms reported as <1/10 pain at its worst in order to perform ADLs without discomfort. 08/25 CONTINUE 12/16/2024 Target Visit 12 OT Goal 2 Goal / Goal Update The patient will demonstrate WNL AROM of B wrist flexion and extension in order to perform grooming tasks without difficulty to maintain independence . 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 GOAL PROGRESSING; CONTINUE SOC: Health Data Analyst: 30 lbs L hand Health Data Analyst: 41 lbs R hand Lateral pinch: 2 lbs L hand Lateral pinch: 5 lbs R hand L UE PN Health Data Analyst: 33 PN Pinch: 5 R UE PN Health Data Analyst: 42 PN Pinch: 7 Norms: R hand: 57 lbs call center director 15 pinch norm 47 L norm Target Visit 12 OT Goal 2 Goal / Goal Update The patient will demonstrate minimal to no scar buildup at L hands at incision site to avoid further limited ROM and pain. GOAL PROGRESSING; CONTINUE L UE; R WNL Target Visit 12 Progress Partially Met
--- NOTE | 2024-12-28 10:50 | OTOPPROG ---
Assessment and note entered by Erika Flores, OT Evaluation Information Assessment Status Progress Diagnosis Pain of bilateral hands ICD-10 Condition Codes (OT) Pain in right hand M79.641,Pain in left hand M79. 642 Assessment OT Clinical Summary The patient demonstrates significant progress in B UE wrist AROM and mobility, continuous improvement specialist/pinch strength, pain levels, and scar management. These improvements have improved the patient's ability to open doors and containers as well as engage in ADLs with independence. The patient demonstrates no difficulty with fine motor coordination or dropping daily items at this time. The patient demonstrates minimal deficits with R hand and minimal to moderate with L hand, the patient scored 13.6% on QuickDASH at progress note for R UE and 40.9% for L UE. These scores demonstrate functional improvement with B UE due to scores at start of care as 52.3% for R hand and 65.9% for L hand. The patient is still having discomfort mostly in L hand and demonstrates minimally below norms for continuous improvement specialist and pinch strength. She demonstrates good progress thus far during OT, to return to MD office 12/30/24 for re-assessment. Plan of Care Interventions Therapeutic Exercise,Manual Therapy,Neuro Re- education,Therapeutic Activities,Hot Pack/Cold Pack,Sensory Integrative Techniques,Self-Care/Home Management,Prosthetic Training,Ultrasound OT Services Indicated Yes Treatment Frequency and 1-2x/week for 10 visits. Duration These treatments will address the objective and functional deficits as defined above. The patient will be advanced safely and appropriately in order for the patient to progress towards his/her prior level of function. Additional exercises will be introduced and as well as a comprehensive home exercise program upon discharge, if needed, ?to ensure carryover of functional gains achieved in the clinic. This treatment plan has been reviewed and agreement upon by the patient.
--- NOTE | 2024-12-28 10:50 | OPREHPOC ---
Outpatient Therapy Plan of Care This is a Multidisciplinary Plan of Care that may contain components documented by all disciplines (PT, OT, and ST.) OT Problem 1 OT Problem #1 Knowledge Deficit OT Goal 1 Goal / Goal Update The patient will demonstrate 100% knowledge and return demonstration for UE HEP in order to improve hand strength and decrease pain for return to work. GOAL MET 12/28/2024 Target Visit 12 Progress Met OT Problem 2 OT Problem #2 Pain OT Goal 1 Goal / Goal Update The patient will demonstrate decreased pain in B hands and forearms reported as <1/10 pain at its worst in order to perform ADLs without discomfort. -01/23 CONTINUE 12/16/2024 CONTINUE 12/28/2024 Target Visit 12 Progress Partially Met OT Goal 2 Goal / Goal Update The patient will demonstrate WNL AROM of B wrist flexion and extension in order to perform grooming tasks without difficulty to maintain independence . GOAL MET; DISCONTINUE 12/28/2024 SOC L wrist flexion: 28 degrees L wrist extension: 60 degrees R wrist flexion: 41 degrees R wrist extension: 65 degrees PN 12/28/2024 L wrist flexion: 61 degrees L wrist extension: 69 degrees R wrist flexion: 68 degrees R wrist extension: 70 degrees Target Visit 12 Progress Met OT Problem 3 OT Problem #3 Impaired Strength OT Goal 1 Goal / Goal Update The patient will demonstrate increased meter repairer and pinch strength by increasing R meter repairer strength to 50 lbs and L meter repairer to 45 lbs; lateral pinch for B hands to 10 lbs of force needed to open jars for meal prep. GOAL PROGRESSING; CONTINUE 12/28/2024 SOC: Diving Instructor: 30 lbs L hand Diving Instructor: 41 lbs R hand Lateral pinch: 2 lbs L hand Lateral pinch: 5 lbs R hand PROGRESS; 12/28/2024 Diving Instructor: 46 lb R hand Diving Instructor: 40 lbs L hand Lateral pinch: 7 lbs R hand Lateral pinch: 7 lbs L hand Target Visit 12 Progress Partially Met OT Goal 2 Goal / Goal Update The patient will demonstrate minimal to no scar buildup at L hands at incision site to avoid further limited ROM and pain. GOAL MET; DISCONTINUE 12/28/2024 Target Visit 12 Progress Met
--- NOTE | 2025-01-31 14:40 | OTOPPROG ---
Assessment and note entered by Erika Flores, OT Evaluation Information Assessment Status Progress Diagnosis Pain of B hands Other ICD-10 Condition Codes ( Post op B carpal tunnel surgery OT) Assessment OT Clinical Summary The patient demonstrates good progress toward child monitor strength goal which has increased independence with homemaking tasks and everyday activities such as opening car door. The patient continues to demonstrate pain in L hand and wrist and reports that she feels a bump on the palmar side of L hand at base of palm. The patient reports 3/10 pain in L hand and reports that the pain affects her during different activities but does not hurt at all times. She reports the pain is bad after working 4-5 hours and then performing everyday activities such as driving. She reports pain when pushing a shopping cart, driving for extended time with patient unable to achieve comfortable position, and when cutting meat where L hand was stabilizing the fork and still caused significant pain. Therapist palpated small bump at base of hand when applying moderate pressure where patient reports the pain but does not note significant protrusion at that area. The patient demonstrates progress toward strength goal but continues to have pain in L hand and wrist which affects her ability to perform daily tasks without discomfort. Patient to see MD tomorrow, progression with therapy will be determined by MD. Plan of Care OT Services Indicated Yes Treatment Frequency and 1-2x/week for 10 visits. Duration These treatments will address the objective and functional deficits as defined above. The patient will be advanced safely and appropriately in order for the patient to progress towards his/her prior level of function. Additional exercises will be introduced and as well as a comprehensive home exercise program upon discharge, if needed, ?to ensure carryover of functional gains achieved in the clinic. This treatment plan has been reviewed and agreement upon by the patient.
== END 2025-02-21 09:18 | disposition still patient (30) ==
LOC: CHSOT 12:55
PROVIDERS: PCP Internal Medicine
DX: M79.641 Pain in right hand (principal)
CPT/HCPCS: 97035; 97110; 97140; 97165; 97530

== ENCOUNTER 2025-02-21 13:36 | Outpatient (RCR) | payer OTHER, SELFPAY ==
--- NOTE | 2025-02-28 12:48 | BUOTOPEVAL ---
Assessment and note entered by Erika Flores OT Evaluation Information Assessment Status Progress Assessment Status Progress Diagnosis Pain of bilateral hands Diagnosis Pain of B hands ICD-10 Condition Codes (OT) Pain in right hand M79.641,Pain in left hand M79. 642 Other ICD-10 Condition Codes ( Post op B carpal tunnel surgery OT) Onset 09/2022 Reported Pain Level Pain Score 0,2: Self Report Assessment OT Clinical Summary The patient demonstrates significant progress with pain symptoms and sales service executive/pinch strength of L hand. She demonstrates 2/10 pain at it's worst with patient reporting that it gets achy and can sometimes be sharp/shooting. She reports that she feels a bump in her L hand which is palpated by therapist with moderate pressure. The patient demonstrates WNL sales service executive and pinch strength of L hand and scored 29.5% on QuickDASH this date due to continued difficulty with performing activities for long periods of time with L hand. She demonstrates minimal pain deficits of L hand with R hand demonstrating WNL and resolved pain. Therapist has engaged patient in modalities and manual treatment to attempt to improve L hand pain and discomfort with some progress, patient demonstrates a plateau with techniques at this time. Per MD recommendation, to continue with therapy or require discharge at this time. Plan of Care Interventions Therapeutic Exercise,Manual Therapy,Therapeutic Activities,Hot Pack/Cold Pack,Electrical Stimulation,Sensory Integrative Techniques,Self- Care/Home Management,Prosthetic Training, Ultrasound Interventions Therapeutic Exercise,Manual Therapy,Neuro Re- education,Therapeutic Activities,Hot Pack/Cold Pack,Sensory Integrative Techniques,Self-Care/Home Management,Prosthetic Training,Ultrasound OT Services Indicated Yes Treatment Frequency and 1x/week for 10. Duration These treatments will address the objective and functional deficits as defined above. The patient will be advanced safely and appropriately in order for the patient to progress towards his/her prior level of function. Additional exercises will be introduced and as well as a comprehensive home exercise program upon discharge, if needed, ?to ensure carryover of functional gains achieved in the clinic. This treatment plan has been reviewed and agreement upon by the patient.
--- NOTE | 2025-02-28 12:49 | OPREHPOC ---
Outpatient Therapy Plan of Care This is a Multidisciplinary Plan of Care that may contain components documented by all disciplines (PT, OT, and ST.) OT Problem 1 OT Problem #1 Knowledge Deficit OT Goal 1 Goal / Goal Update The patient will demonstrate 100% knowledge and return demonstration for UE HEP in order to improve hand strength and decrease pain for return to work. GOAL MET 12/28/2024 Target Visit 12 Progress Met OT Problem 2 OT Problem #2 Pain OT Goal 1 Goal / Goal Update The patient will demonstrate decreased pain in B hands and forearms reported as <1/10 pain at its worst in order to perform ADLs without discomfort. 2/10 for L hand 0/10 for R hand CONTINUE 12/16/2024 CONTINUE 12/28/2024 CONTINUE 01/31/2025 Target Visit 12 Progress Partially Met OT Goal 2 Goal / Goal Update The patient will demonstrate WNL AROM of B wrist flexion and extension in order to perform grooming tasks without difficulty to maintain independence . GOAL MET; DISCONTINUE 12/28/2024 SOC L wrist flexion: 28 degrees L wrist extension: 60 degrees R wrist flexion: 41 degrees R wrist extension: 65 degrees PN 12/28/2024 L wrist flexion: 61 degrees L wrist extension: 69 degrees R wrist flexion: 68 degrees R wrist extension: 70 degrees Target Visit 12 Progress Met OT Problem 3 OT Problem #3 Impaired Strength OT Goal 1 Goal / Goal Update The patient will demonstrate increased burnishing machine operator and pinch strength by increasing R burnishing machine operator strength to 50 lbs and L burnishing machine operator to 45 lbs; lateral pinch for B hands to 10 lbs of force needed to open jars for meal prep. GOAL MET; DISCONTINUE 02/24/2025 SOC: Pipe Bender: 30 lbs L hand Pipe Bender: 41 lbs R hand Lateral pinch: 2 lbs L hand Lateral pinch: 5 lbs R hand PROGRESS; 01/31/2025 Pipe Bender: 53 lb R hand Pipe Bender: 45 lbs L hand Lateral pinch: 7 lbs R hand Lateral pinch: 7 lbs L hand Target Visit 12 Progress Partially Met OT Goal 2 Goal / Goal Update The patient will demonstrate minimal to no scar buildup at L hands at incision site to avoid further limited ROM and pain. GOAL MET; DISCONTINUE 12/28/2024 Target Visit 12 Progress Met
--- NOTE | 2025-03-10 10:18 | OTOPDC ---
Assessment and note entered by Erika Flores, OT Evaluation Information Assessment Status Discharge - Pt Not Present Assessment OT Clinical Summary The patient had follow up appointment with MD where they provided x-ray to B hands due to continued discomfort in L hand. The patient reports that she has bone on bone at the [facility] joint reported as arthritis from MD. She stated that she knows that it will not have a quick fix and the doctor educated her on steroid shots for pain and potential for surgery in the future. The patient reports this past week she has experienced increased pain in L hand following 8 hour work day but she wants to keep working. She reports that her hands feel fatigued and she has been wearing thumb brace due to discomfort. Therapist educated her on use of wrist/thumb brace for pain management but to also remove the brace and engage in thumb/wrist stretches and compliance and control analyst/pinch exercises provided to her in HEP to maintain ROM and strength. Therapist educated patient that although arthritis is a chronic condition, light stretching and exercise helps to manage symptoms by supporting the painful area by keeping musculature strong. The patient reports understanding of continued brace, exercise and stretching program to maintain pain symptoms. The patient's MD has not ordered more therapy, patient to be discharged at this time with HEP to manage symptoms. Plan of Care OT Services Indicated No
--- NOTE | 2025-03-10 10:18 | OPREHPOC ---
Outpatient Therapy Plan of Care This is a Multidisciplinary Plan of Care that may contain components documented by all disciplines (PT, OT, and ST.) OT Problem 1 OT Problem #1 Knowledge Deficit OT Goal 1 Goal / Goal Update The patient will demonstrate 100% knowledge and return demonstration for UE HEP in order to improve hand strength and decrease pain for return to work. GOAL MET 12/28/2024 Target Visit 12 Progress Met OT Problem 2 OT Problem #2 Pain OT Goal 1 Goal / Goal Update The patient will demonstrate decreased pain in B hands and forearms reported as <1/10 pain at its worst in order to perform ADLs without discomfort. 2/10 for L hand 0/10 for R hand CONTINUE 12/16/2024 CONTINUE 12/28/2024 CONTINUE 01/31/2025 Target Visit 12 Progress Partially Met OT Goal 2 Goal / Goal Update The patient will demonstrate WNL AROM of B wrist flexion and extension in order to perform grooming tasks without difficulty to maintain independence . GOAL MET; DISCONTINUE 12/28/2024 SOC L wrist flexion: 28 degrees L wrist extension: 60 degrees R wrist flexion: 41 degrees R wrist extension: 65 degrees PN 12/28/2024 L wrist flexion: 61 degrees L wrist extension: 69 degrees R wrist flexion: 68 degrees R wrist extension: 70 degrees Target Visit 12 Progress Met OT Problem 3 OT Problem #3 Impaired Strength OT Goal 1 Goal / Goal Update The patient will demonstrate increased curing pickling packer and pinch strength by increasing R curing pickling packer strength to 50 lbs and L curing pickling packer to 45 lbs; lateral pinch for B hands to 10 lbs of force needed to open jars for meal prep. GOAL MET; DISCONTINUE 02/24/2025 SOC: It Help Desk Manager: 30 lbs L hand It Help Desk Manager: 41 lbs R hand Lateral pinch: 2 lbs L hand Lateral pinch: 5 lbs R hand PROGRESS; 01/31/2025 It Help Desk Manager: 53 lb R hand It Help Desk Manager: 45 lbs L hand Lateral pinch: 7 lbs R hand Lateral pinch: 7 lbs L hand Target Visit 12 Progress Partially Met OT Goal 2 Goal / Goal Update The patient will demonstrate minimal to no scar buildup at L hands at incision site to avoid further limited ROM and pain. GOAL MET; DISCONTINUE 12/28/2024 Target Visit 12 Progress Met
== END 2025-02-24 20:00 | disposition home or self-care (01) ==
LOC: CHSOT 13:36
PROVIDERS: PCP Internal Medicine
DX: M79.641 Pain in right hand (principal); M79.642 Pain in left hand
CPT/HCPCS: 97035; 97110; 97530

== ENCOUNTER 2025-07-10 15:32 | Outpatient (CLI) | payer BC, SELFPAY ==
--- NOTE | ~2025-07-10 | XR_ITS ---
XR foot RT min 3V 07/10/2025 16:03 Indication: Right heel pain Procedure: 4 views right foot Comparison: No prior studies for comparison. Findings: There are small degenerative calcaneal enthesophytes. There are surgical changes of right hallux valgus repair. Lisfranc joint intact. No acute fracture, subluxation or dislocation. No soft tissue abnormality. No foreign bodies. Impression: 1: Small degenerative calcaneal enthesophytes. 2: No acute abnormality of the right foot. Reviewed, dictated and finalized at location O. Impression: 1: Small degenerative calcaneal enthesophytes. 2: No acute abnormality of the right foot.
--- OUTSIDE RECORDS SUMMARY | 2025-07-10 15:38 | XMS_ITS | Encounter Summary ---
Author Organization [facility] Address [address] [place] [address] Phone Care Team Providers Care Regroover Name Role Phone Carlton Benitez MD Primary Care Provider + [phone] Encounter Details Date Type Department Care Team (Latest Contact Info) Description 04/24/2021 Orders Only [facility] Scanning, Provider Social History Tobacco Use Types Packs/Day Years Used Date Smoking Tobacco: Never Alcohol Use Standard Drinks/Week Comments Yes 0 (1 standard drink = 0.6 oz pur e alcohol) Comments No Sex and Gender Information Value Date Recorded Sex Assigned at Not on file Legal Sex Female 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
--- OUTSIDE RECORDS SUMMARY | 2025-07-10 15:38 | XMS_ITS | Clinical Summary ---
Author Organization [facility] Address [address] [place] [address] Care Team Providers Care Laborer Poultry Hatchery Name Role Phone Carlton Benitez MD Primary Care Provider [phone] Paulo Rubio MD Unavailable [phone] Allergies No known active allergies Medications No known medications Active Problems Problem Noted Date Diagnosed Date Ventricular arrhythmia 07/25/2019 Dizziness Tachycardia Palpitations Family History Relation Status Comments Father DC, CABG, CVA Mother Alive Social History Tobacco Use Types Packs/Day Years Used Date Smoking Tobacco: Former Smokeless Tobacco: Never Alcohol Use Standard Drinks/Week Comments No 0 (1 standard drink = 0.6 oz pur e alcohol) AUDIT-C Answer Date Recorded Frequency of Alcohol Consumption Never 05/13/2019 Average Number of Drinks Not on file 019 Frequency of Binge Drinking Not on file 04/17 Comments Unknown Sex and Gender Information Value Date Recorded Sex Assigned at Not on file Legal Sex Female 3:22 PM CDT Gender Identity Not on file Sexual Orientation Not on file Last Filed Vital Signs Vital Sign Reading Time Taken Comments Blood Pressure 132/80 05/13/2019 9:54 AM CDT Pulse 68 05/13/2019 9:54 AM CDT Temperature - - Respiratory Rate 18 05/13/2019 9:54 AM CDT Oxygen Saturation 100% 05/13/2019 9:54 AM CDT Inhaled Oxygen Concentration - - Weight 74.8 kg (165 lb) 06/03/2019 11:00 AM CDT Height 175.3 cm (5' 9) 06/03/2019 11:00 AM CDT Body Mass Index 24.37 06/03/2019 11:00 AM CDT Plan of Treatment Health Maintenance Due Date Last Done Comments Cervical Cancer Screening Pa p Smear (Age 30 to 64) Every 3 Years 1968 Colorectal Cancer Screening Colonoscopy (10 Years) 1968 Annual Physical 1971 Hepatitis C 1986 DTaP, Tdap and Td Vaccines ( 1 - Tdap) 1987 Hepatitis B Vaccines (1 of 3 - 19+ 3-dose series) 1987 Cervical Cancer Screening Pa p with HPV Testing (Age 30 to 64) Every 5 Years 1998 Cervical Cancer Screening with HPV 1998 Mammogram Screening 2008 Pneumococcal Vaccine: 50+ Ye ars (1 of 1 - PCV) 2018 Zoster Vaccines (1 of 2) 2018 COVID-19 Vaccine (1 - 2023-2 5 season) 2024 Meningococcal B Vaccine Aged Out No l onger eligible based on patient's age to complete this topic Meningococcal Vaccine Aged Out No nicola barrera eligible based on patient's age to complete this topic RSV Immunizations Under 20 Months Aged Out No longer eligible based on patient's age to complete this topic Insurance [facility] Care Teams Laborer Poultry Hatchery Relationship Specialty Start Date End Date Carlton eBnitez MD [address] [place] [id number] PCP - General INTERNAL MEDICINE 05/11/19 Paulo Rubio MD [address] [place] [address] [facility] Director CARDIOVASCULAR DISEASE 05/11/19
--- OUTSIDE RECORDS SUMMARY | 2025-07-10 15:38 | XMS_ITS | Encounter Summary ---
Author Organization [facility] Address [address] [place] [address] Phone Care Team Providers Care Booky Name Role Phone Carlton Benitez MD Primary Care Provider + [phone] Encounter Details Date Type Department Care Team (Latest Contact Info) Description 02/21/2019 Orders Only [facility] Scanning, Provider Social History Tobacco Use Types Packs/Day Years Used Date Smoking Tobacco: Never Alcohol Use Standard Drinks/Week Comments Yes 0 (1 standard drink = 0.6 oz pur e alcohol) Comments Unknown Sex and Gender Information Value Date Recorded Sex Assigned at Not on file 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
--- OUTSIDE RECORDS SUMMARY | 2025-07-10 15:38 | XMS_ITS | Clinical Summary ---
Author Organization [facility] Address [address] [id number] Care Team Providers Care Pharmacy Stock Clerk Name Role Phone Carlton Benitez MD Primary Care Provider + [phone] Allergies No known active allergies Medications Hospital, Clinic, or Other Facility Administered Medication Ordered Dose Route Frequency Start Date End Date Status perflutren protein-a (OPTISON) 3 mL in sodium chloride 0.9% 8 mL syringe 1 - 8 mL IV Once in imaging 05/28/2021 Active Active Problems Problem Noted Date Diagnosed Date PVC (premature ventricular contraction) 05/14/20 21 Surgical History Surgery Date Site/Laterality Comments MENISCUS SURGERY Meniscus surgery ANTERIOR CRUCIATE LIGAMENT REPAIR ACL repair FL ARTHROSCOPY KNEE DIAGNOST IC W/WO SYNOVIAL BX SPX Arthroscopy Knee - (Added by Conv) Medical History Medical History Date Comments Hx Other Medical Headache, migra ine Hx Other Medical abnormal heartb eat Personal history of other di seases of the nervous system and sense organs History of migraine - (Added by TW Conv) Personal history of other di seases of the circulatory system History of cardiac arrhythmi a - (Added by TW Conv) Family History Medical History Relation Name Comments Cancer Father Family history of malignant neoplasm - (Added by TW Conv) Diabetes Father Family history of diabetes mellitus - (Added by TW Conv) Gout Father Family history of gout - (Added by TW Conv) Heart disease Father Family history of cardiac disorder - (Added by TW Conv) Hypertension Father Family history of hypertension - (Added by TW Conv) Stroke Father Family history of cerebrovascular accident (CVA) - (Added by TW Conv) Diabetes Mother Family history of diabetes mellitus - (Added by TW Conv) Heart disease Mother Family history of cardiac disorder - (Added by TW Conv) Gout Other 1 Family history of Gout; Heart disease Other 2 Family history of heart problems; Stroke Other 3 Family history of Stroke; Cancer Other 4 Family history of cancer; Diabetes Other 5 Family history of diabetes; Relation Name Status Comments Father Mother Other 1 Other 2 Other 3 Other 4 Other 5 Social History Tobacco Use Types Packs/Day Years Used Date Smoking Tobacco: Former Smokeless Tobacco: Never Alcohol Use Standard Drinks/Week Comments Yes 0 (1 standard drink = 0.6 oz pur e alcohol) Comments No Sex and Gender Information Value Date Recorded Sex Assigned at Not on file Legal Sex Female 10:06 AM WIRE WELDER Gender Identity Not on file Sexual Orientation Not on file Obstetrics History Para Term AB IAB SAB Ectopic Multiple Livin g Live Births 2 1 1 Date Outcome GA Total Labor Labor/2nd/3rd Weight Sex Type Anes PTL Stacie A1 A5 Name Clin Term Last Filed Vital Signs Vital Sign Reading Time Taken Comments Blood Pressure 130/80 03/31/2022 12:23 PM CDT Pulse 64 03/31/2022 12:23 PM CDT Temperature - - Respiratory Rate - - Oxygen Saturation 99% 03/31/2022 12:23 PM CDT Inhaled Oxygen Concentration - - Weight 72.6 kg (160 lb) 10/03/2022 3:44 PM WIRE WELDER Height 172.7 cm (5' 8) 10/03/2022 3:44 PM WIRE WELDER Body Mass Index 24.33 10/03/2022 3:44 PM WIRE WELDER Plan of Treatment Health Maintenance Due Date Last Done Comments Cervical Cancer Screening 1968 Colon Cancer Screening-Colonoscopy 1968 Depression Screening 1968 Hepatitis C Screening 1968 Hepatitis B Screening 1986 Regular Well Visit/Exam 18-64 1986 Zoster Vaccine (1 of 2) 2018 DTaP/Tdap/Td Vaccine (2 - Td or Tdap) 02/25/2023 02/25/2013 Influenza Vaccine (#1) 2025 Breast Cancer Screening-Mammogram 11/24/2025 11/24/2024, 10/07/2023, 10/03/2022, Additional history exists Pneumococcal vaccine <65 Aged Out No longer eligible based on patient's age to complete this topic Procedures Procedure Name Priority Date/Time Associated Diagnosis Comments SCREENING MAMMOGRAM BILATERAL W GEE Schedule Routine, Read Routine (OP Routine) 11/24/2024 1:15 PM WIRE WELDER Encounter for screening mammogram for malignant neoplasm of breast from Last 3 Months or Most Recently Relevant to Health Maintenance Results * Screening Mammogram Bilateral W Gee (11/24/2024 1:15 PM WIRE WELDER) Anatomical Region Laterality Modality Breast Bilateral Mammography 11/25/2024 8:06 AM WIRE WELDER Impressions 11/25/2024 8:06 AM WIRE WELDER There is no mammographic evidence of malignancy. A 1 year screening mammogram is recommended. BI-RADS: 1 - Negative. The patient has been or will be contacted. The patient will be entered into a reminder system with a target due date of 1 year for her next mammogram. Electronically signed by: Ivy Ruano M.D. Narrative 11/25/2024 8:06 AM WIRE WELDER EXAMINATION: SCREENING MAMMOGRAM BILATERAL W GEE ORDERING HEALTHCARE PROVIDER: ELSA RAI HISTORY: Routine screening mammography. COMPARISON: 10/07/2023, 10/03/2022, 09/27/2021, 09/20/2020, 08/30/2019 TECHNIQUE: CC and MLO views of the bilateral breasts were obtained with digital technique using breast tomosynthesis with C view. Computer aided detection was utilized. FINDINGS: DENSITY: There are scattered areas of fibroglandular density. BREASTS: There are no suspicious masses, suspicious calcifications, or other suspicious findings in either breast. There has been no suspicious interval change. Elsa Rai MD IMG MAMMO PROCEDURES Final Re sult from Last 3 Months or Most Recently Relevant to Health Maintenance Insurance [employer] OOS BLUE ACCESS OOS BLUE ACCESS OOS BLUE ACCESS [place] [employer] COMPENSATION GENERIC Care Teams Pharmacy Stock Clerk Relationship Specialty Start Date End Date Carlton Benitez MD [address] [place] [address] PCP - General 05/14/17
== END 2025-07-10 15:33 | disposition home or self-care (01) ==
LOC: CHSIMG 15:33
PROVIDERS: PCP Internal Medicine; Visit Provider Internal Medicine
DX: M77.31 Calcaneal spur, right foot (principal); M79.671 Pain in right foot
CPT/HCPCS: 73630